=== PATIENT | male | born 1995 | race Caucasian/White ===

== ENCOUNTER 2018-02-20 14:45 | Emergency (ER) | payer BC ==
[~2018-02-20] VITALS: Ht 188 cm; Wt 82.0 kg
[2018-02-20] MEDS ORDERED: TETANUS, DIPHTHERIA, PERTUSSIS VAC/PF 0.5ML (>7YR OLD) IM ONE ×2 (15:15→20:35)
[2018-02-20] MEDS ORDERED: LIDOCAINE HCL 1% 20ML VIAL (Pyxis) INJ INFIL ONE (20:45)
[2018-02-20] MEDS ORDERED: LIDOCAINE HCL 1% 10 MG/ML 10ML VIAL IJ NR (21:00)
[2018-02-20 22:03] VITALS: BP 145/89
== END 2018-02-20 22:04 | disposition home or self-care (01) ==
LOC: ER 14:45
DX: S01.81XA Laceration without foreign body of other part of head, initial encounter (principal); W27.8XXA Contact with other nonpowered hand tool, initial encounter; Y93.89 Activity, other specified; Y92.89 Other specified places as the place of occurrence of the external cause; Z23 Encounter for immunization
CPT/HCPCS: 12011; 90471; 90715; 99283; J3490; Z7610